=== PATIENT | male | born 1985 | race Caucasian/White ===

== ENCOUNTER → 2020-05-22 | Outpatient (CLI) | payer BC | END | disposition home or self-care (01) | LOC: CARD 15:39 | PROVIDERS: ATTEND Internal Medicine Hematology & Oncology | DX: C62.11 Malignant neoplasm of descended right testis (principal) | CPT/HCPCS: 94010; 94726; 94729 ==

== ENCOUNTER 2020-05-25 08:30 | Day surgery (SDC) | payer BC ==
[~2020-05-25] VITALS: Ht 175.3 cm; Wt 72.5 kg
[2020-05-25 08:57] VITALS: BP 135/87
[2020-05-25] MEDS ORDERED: CEFAZOLIN PMX 1GM/50ML 50 ML IV ONE (09:00)
[2020-05-25] MEDS ORDERED: SODIUM CHLORIDE 0.9% 1,000 ML IV SCH (09:00)
[2020-05-25] MEDS ORDERED: LIDOCAINE 1%, 20ML ONE (10:18)
[2020-05-25] MEDS ORDERED: FENTANYL PF 100 MCG/2ML ONE (10:18)
[2020-05-25] MEDS ORDERED: NALOXONE 1 MG/ML, 2ML ONE (10:18)
[2020-05-25] MEDS ORDERED: MIDAZOLAM 1 MG/ML, 5ML ONE (10:18)
[2020-05-25] MEDS ORDERED: FLUMAZENIL 0.1 MG/1 ML, 5ML ONE (10:18)
== END 2020-05-25 12:15 | disposition home or self-care (01) ==
LOC: OUT 08:30
PROVIDERS: ATTEND Internal Medicine Hematology & Oncology
DX: C62.11 Malignant neoplasm of descended right testis (principal); Z90.79 Acquired absence of other genital organ(s); Z80.43 Family history of malignant neoplasm of testis
CPT/HCPCS: 36561; 76937; 77001; 99156; 99157; C1788; J0690; J1642; J2250; J3010; J7030; J2310

== ENCOUNTER 2020-08-30 07:04 | Day surgery (SDC) | payer BC ==
[~2020-08-30] VITALS: Ht 175.3 cm; Wt 76.4 kg
[2020-08-30 07:40] VITALS: BP 127/79
[2020-08-30] MEDS ORDERED: SODIUM CHLORIDE 0.9% 1,000 ML IV SCH (08:00)
[2020-08-30] MEDS ORDERED: NALOXONE 1 MG/ML, 2ML ONE (08:42)
[2020-08-30] MEDS ORDERED: FLUMAZENIL 0.1 MG/1 ML, 5ML ONE (08:42)
[2020-08-30] MEDS ORDERED: FENTANYL PF 100 MCG/2ML ONE (08:42)
[2020-08-30] MEDS ORDERED: MIDAZOLAM 1 MG/ML, 5ML ONE (08:42)
[2020-08-30] MEDS ORDERED: LIDOCAINE 1%, 20ML ONE (08:48)
== END 2020-08-30 11:00 | disposition home or self-care (01) ==
LOC: OUT 07:04
PROVIDERS: ATTEND Internal Medicine Hematology & Oncology
DX: Z45.2 Encounter for adjustment and management of vascular access device (principal); C62.11 Malignant neoplasm of descended right testis; Z79.899 Other long term (current) drug therapy; Z90.79 Acquired absence of other genital organ(s); Z80.43 Family history of malignant neoplasm of testis
CPT/HCPCS: 36590; 77001; 99156; 99157; J2250; J3010; J7030; J2310

== ENCOUNTER 2021-02-20 12:12 | Outpatient (CLI) | payer BC | END 2021-02-20 23:59 | disposition home or self-care (01) | LOC: RAD 12:12 | PROVIDERS: ATTEND Internal Medicine Hematology & Oncology | DX: C62.11 Malignant neoplasm of descended right testis (principal) | CPT/HCPCS: 71046 ==